=== PATIENT | female | born 1995 | race American Indian/Alaskan Native ===

== ENCOUNTER 2018-11-21 03:04 | Emergency (ER) | payer OTHER ==
[2018-11-21 03:18] VITALS: BP 129/84
[2018-11-21] MEDS ORDERED: TYLENOL ONE (03:28)
[2018-11-21] MEDS ORDERED: ZOFRAN ODT ONE (03:28)
[2018-11-21] MEDS ORDERED: TYLENOL PO ONE (03:29)
[2018-11-21] MEDS ORDERED: ZOFRAN ODT PO ONE (03:29)
[2018-11-21] MEDS ORDERED: BENTYL IM ONE (03:34)
[2018-11-21] MEDS ORDERED: NACL 0.9% 1000 ML 1,000 ML IV ONE (03:34)
[2018-11-21] MEDS ORDERED: ZOFRAN IV ONE (03:34)
--- NOTE | 2018-11-21 03:40 | Emergency Department Report ---
ED N/V/D HPI - General Chief complaint: Abdominal Pain Stated complaint: ABDOMINAL PAIN Source: patient Mode of arrival: Ambulatory Limitations: No Limitations - History of Present Illness Initial comments: Patient is a 23-year-old -[place] female presents for abdominal pain nausea vomiting diarrhea after eating chicken symptoms for the past 2 days patient states unable tolerate by mouth intake symptoms are relieved by nothing . LMP 11/05/2018 patient of fever no chills, abdominal pain described as cramping , there is no vaginal bleeding or vaginal discharge no back pain or shortness of breath patient does endorse epigastric pain as burning MD complaint: nausea, vomiting, diarrhea, abdominal pain Onset/Timin -: days(s) Description of Vomiting: food contents Description of Diarrhea: water Associated Abdominal Pain: Yes (cramping spasm) Location: LLQ, RLQ, epigastric Radiation: none Severity: moderate Pain Scale: 5 Quality: cramping Consistency: constant Improves with: none Worsens with: eating Context: possible food poisoning Associated Symptoms: nausea/vomiting - Related Data Previous Rx's Medication Instructions Recorded Last Taken Type Albuterol Sulfate [Ventolin HFA] 2 puff IH Q4H PRN #1 hfa.aer.ad 10/27/15 Unknown Rx Azithromycin [Zithromax Z-THIAGO] 0 mg PO DAILY #6 tab 10/27/15 Unknown Rx Benzonatate [Tessalon Perles] 100 mg PO Q8HR #21 capsule 10/27/15 Unknown Rx predniSONE [Deltasone] 20 mg PO QDAY #5 tab 10/27/15 Unknown Rx Dicyclomine [Bentyl] 10 mg PO QID PRN #12 capsule 11/21/18 Unknown Rx Ibuprofen 800 mg PO TID PRN #30 tablet 11/21/18 Unknown Rx Ondansetron [Zofran Odt] 4 mg PO Q8HR PRN #9 tab.rapdis 11/21/18 Unknown Rx Allergies Allergy/AdvReac Type Severity Reaction Status Date / Time No Known Allergies Allergy Unverified 05/30/14 10:50 ED Review of Systems ROS: Stated complaint: ABDOMINAL PAIN Other details as noted in HPI Constitutional: denies: chills, fever Eyes: denies: eye pain, eye discharge, vision change ENT: denies: ear pain, throat pain Respiratory: denies: cough, shortness of breath, wheezing Cardiovascular: denies: chest pain, palpitations Endocrine: no symptoms reported Gastrointestinal: abdominal pain, nausea, vomiting, diarrhea. denies: constipation, hematemesis, melena, hematochezia Genitourinary: denies: urgency, dysuria, frequency, hematuria, discharge, dyspareunia Musculoskeletal: denies: back pain, joint swelling, arthralgia Skin: denies: rash, lesions Neurological: denies: headache, weakness, paresthesias Psychiatric: denies: anxiety, depression Hematological/Lymphatic: denies: easy bleeding, easy bruising ED Past Medical Hx - Past Medical History Previous Medical History?: Yes Hx Asthma: Yes - Surgical History Past Surgical History?: Yes Additional Surgical History: tonsilectomy/adenoids - Social History Smoking Status: Current Every Day Smoker Substance Use Type: Marijuana - Medications Home Medications: Home Medications Medication Instructions Recorded Confirmed Last Taken Type Albuterol Sulfate [Ventolin HFA] 2 puff IH Q4H PRN #1 hfa.aer.ad 10/27/15 Unknown Rx Azithromycin [Zithromax Z-THIAGO] 0 mg PO DAILY #6 tab 10/27/15 Unknown Rx Benzonatate [Tessalon Perles] 100 mg PO Q8HR #21 capsule 10/27/15 Unknown Rx predniSONE [Deltasone] 20 mg PO QDAY #5 tab 10/27/15 Unknown Rx Dicyclomine [Bentyl] 10 mg PO QID PRN #12 capsule 11/21/18 Unknown Rx Ibuprofen 800 mg PO TID PRN #30 tablet 11/21/18 Unknown Rx Ondansetron [Zofran Odt] 4 mg PO Q8HR PRN #9 tab.rapdis 11/21/18 Unknown Rx ED Physical Exam - General Limitations: No Limitations General appearance: alert, in no apparent distress - Head Head exam: Present: atraumatic, normocephalic - Eye Eye exam: Present: normal appearance, PERRL, EOMI Pupils: Present: normal accommodation - ENT ENT exam: Present: normal orophraynx, mucous membranes moist, TM's normal bilaterally, normal external ear exam - Neck Neck exam: Present: normal inspection, full ROM. Absent: lymphadenopathy, thyromegaly - Respiratory Respiratory exam: Present: normal lung sounds bilaterally. Absent: respiratory distress, wheezes, stridor, chest wall tenderness - Cardiovascular Cardiovascular Exam: Present: regular rate, normal rhythm, normal heart sounds. Absent: systolic murmur, diastolic murmur, rubs, gallop - GI/Abdominal GI/Abdominal exam: Present: soft, normal bowel sounds. Absent: distended, tenderness, guarding, rebound, rigid, bruit, hernia - Rectal Rectal exam: Present: deferred - Extremities Exam Extremities exam: Present: normal inspection, full ROM. Absent: tenderness - Back Exam Back exam: Present: normal inspection, full ROM. Absent: tenderness, CVA te nderness (R), CVA tenderness (L) - Neurological Exam Neurological exam: Present: alert, oriented X3, CN II-XII intact, normal gait - Psychiatric Psychiatric exam: Present: normal affect, normal mood - Skin Skin exam: Present: warm, dry, intact, normal color. Absent: rash ED Course Vital Signs 11/21/18 03:12 Temperature 99.2 F Pulse Rate 92 H Respiratory 14 Rate Blood Pressure 129/84 O2 Sat by Pulse 97 Oximetry ED Medical Decision Making - Lab Data Result diagrams: 11/21/18 03:38 11/21/18 03:38 Labs 11/21/18 11/21/18 11/21/18 03:20 03:38 03:38 WBC 13.7 H RBC 4.83 Hgb 13.3 Hct 41.0 MCV 85 MCH 27 L MCHC 32 RDW 14.3 Plt Count 284 Lymph % (Auto) 8.9 L Mccone % (Auto) 6.3 Eos % (Auto) 0.3 Baso % (Auto) 0.4 Lymph # 1.2 Mccone # 0.9 H Eos # 0.0 Baso # 0.1 Seg Neutrophils % 84.1 H Seg Neutrophils # 11.5 H PT INR Sodium 140 Potassium 3.4 L Chloride 99.4 Carbon Dioxide 26 Anion Gap 18 BUN 10 Creatinine 0.8 Estimated GFR > 60 BUN/Creatinine Ratio 13 Glucose 137 H Calcium 9.4 Total Bilirubin 0.40 AST 19 ALT 12 Alkaline Phosphatase 93 Total Protein 7.5 Albumin 4.7 Albumin/Globulin Ratio 1.7 Lipase HCG, Qual Urine Color Yellow Urine Turbidity Clear Urine pH 6.0 Ur Specific Randolph 1.021 Urine Protein <15 mg/dl Urine Glucose (UA) Neg Urine Ketones 20 Urine Blood Neg Urine Nitrite Neg Urine Bilirubin Neg Urine Urobilinogen < 2.0 Ur Leukocyte Esterase Neg Urine WBC (Auto) 1.0 Urine RBC (Auto) 1.0 U Epithel Cells (Auto) 5.0 Urine Mucus Few 11/21/18 11/21/18 11/21/18 03:38 03:38 03:38 WBC RBC Hgb Hct MCV MCH MCHC RDW Plt Count Lymph % (Auto) Mccone % (Auto) Eos % (Auto) Baso % (Auto) Lymph # Mccone # Eos # Baso # Seg Neutrophils % Seg Neutrophils # PT 14.0 INR 1.04 Sodium Potassium Chloride Carbon Dioxide Anion Gap BUN Creatinine Estimated GFR BUN/Creatinine Ratio Glucose Calcium Total Bilirubin AST ALT Alkaline Phosphatase Total Protein Albumin Albumin/Globulin Ratio Lipase 16 HCG, Qual Negative Urine Color Urine Turbidity Urine pH Ur Specific Randolph Urine Protein Urine Glucose (UA) Urine Ketones Urine Blood Urine Nitrite Urine Bilirubin Urine Urobilinogen Ur Leukocyte Esterase Urine WBC (Auto) Urine RBC (Auto) U Epithel Cells (Auto) Urine Mucus - EKG Data EKG shows normal: sinus rhythm Rate: normal - EKG Data Interpretation: normal EKG (ekg interp by ed attending ) - Radiology Data Radiology results: report reviewed, image reviewed FINAL REPORT PROCEDURE: CT ABDOMEN PELVIS W CON TECHNIQUE: Computerized axial tomography of the abdomen and pelvis was performed after the IV injection of iodinated nonionic contrast. HISTORY: abd pain COMPARISON: No prior studies are available for comparison. FINDINGS: Visualized lower thorax: No significant abnormality. Liver: Normal size and attenuation. Spleen: Normal size and attenuation. Gallbladder and biliary system: Normal. Pancreas: Normal. Adrenals: Normal. Kidneys: Normal. GI tract: Normal. Lymph nodes and mesentery: Normal. Vasculature: Normal. Bladder: Normal. Reproductive organs: The uterus is normal. There is a 3 centimeter cyst on the left ovary. Moderate fluid in the lower pelvis.. Peritoneum: No free fluid. Musculoskeletal structures: No significant abnormality. Other: None. IMPRESSION: There is no evidence of intestinal or urinary tract obstruction. Appendix is n ormal. 3 centimeter left ovarian cyst. Moderate fluid in the lower pelvis is noted. - Medical Decision Making CT abdomen and pelvis results left ovarian cyst 3 cm small amount of free fluid pelvis no inflammatory process ,wbc: 13.7, patient states her pain is improved to 1/10 patient tolerated by mouth intake without nausea vomiting there is no fever no chills at this time, plan NSAIDs when necessary pain follow-up with ERP ANALYST in 2-3 days patient given referral to Dr. Dallas Lowry ERP ANALYST pt advises ready to go home , pt dc'd to home in stable condition at this time. Critical care attestation.: If time is entered above; I have spent that time in minutes in the direct care of this critically ill patient, excluding procedure time. ED Disposition Clinical Impression: Abdominal pain Qualifiers: Abdominal location: generalized Qualified Code(s): R10.84 - Generalized abdominal pain Nausea and vomiting Qualifiers: Vomiting type: unspecified Vomiting Intractability: non-intractable Qualified Code(s): R11.2 - Nausea with vomiting, unspecified Disposition: DC-01 TO HOME OR SELFCARE Is pt being admited?: No Does the pt Need Aspirin: No Condition: Stable Instructions: Abdominal Pain (ED), Acute Nausea and Vomiting (ED) Prescriptions: Dicyclomine [Bentyl] 10 mg PO QID PRN #12 capsule PRN Reason: abdominal spasm Ibuprofen 800 mg PO TID PRN #30 tablet PRN Reason: pain Ondansetron [Zofran Odt] 4 mg PO Q8HR PRN #9 tab.rapdis PRN Reason: Nausea And Vomiting Referrals: [facility] [Outside] - 3-5 Days Forms: Work/School Release Form(ED) Time of Disposition: 06:47
[2018-11-21 04:05] LABS: Bilirubin,Urine NEG (Negative); Blood,Urine NEG (Negative); Color,Urine Yellow (Yellow); Mucus,Urine FEW /HPF; Protein,Urine <15 mg/dL mg/dL (Negative); Urobilinogen,Urine < 2.0 mg/dL (<2.0)
[2018-11-21 04:08] LABS: Basophils # (Auto) 0.1 K/mm3 (0.0-0.1); Basophils % (Auto) 0.4 % (0.0-1.8); Eosinophils % (Auto) 0.3 % (0.0-4.3); Hemoglobin 13.3 gm/dl (10.1-14.3); Lymphocytes # (Auto) 1.2 K/mm3 (1.2-5.4); Lymphocytes % (Auto) 8.9 % (13.4-35.0); Monocytes # (Auto) 0.9 K/mm3 (0.0-0.8); Monocytes % (Auto) 6.3 % (0.0-7.3)
[2018-11-21 04:17] LABS: INR 1.04 (0.87-1.13)
[2018-11-21 04:26] LABS: Alanine Aminotransferase 12 units/L (7-56); Albumin 4.7 g/dL (3.9-5); BUN/Creatinine Ratio 13; Blood Urea Nitrogen 10 mg/dL (7-17); Calcium 9.4 mg/dL (8.4-10.2); Hemolysis Index 2
[2018-11-21 04:40] LABS: Mean Corpuscular HGB Conc 32 % (30-34); Mean Corpuscular Volume 85 fl (79-97); Platelet Count 284 K/mm3 (140-440); Red Blood Count 4.83 M/mm3 (3.65-5.03); Red Cell Distribution Width 14.3 % (13.2-15.2)
--- NOTE | 2018-11-21 05:33 | Cat Scan Report ---
FINAL REPORT PROCEDURE: CT ABDOMEN PELVIS W CON TECHNIQUE: Computerized axial tomography of the abdomen and pelvis was performed after the IV inject ion of iodinated nonionic contrast. HISTORY: abd pain COMPARISON: No prior studies are available for comparison. FINDINGS: Visualized lower thorax: No significant abnormality. Liver: Normal size and attenuation. Spleen: Normal size and attenuation. Gallbladder and biliary system: Normal. Pancreas: Normal. Adrenals: Normal. Kidneys: Normal. GI tract: Normal. Lymph nodes and mesentery: Normal. Vasculature: Normal. Bladder: Normal. Reproductive organs: The uterus is normal. There is a 3 centimeter cyst on the left ovary. Moderate f luid in the lower pelvis.. Peritoneum: No free fluid. Musculoskeletal structures: No significant abnormality. Other: None. IMPRESSION: There is no evidence of intestinal or urinary tract obstruction. Appendix is normal. 3 centimeter left ovarian cyst. Moderate fluid in the lower pelvis is noted.
== END 2018-11-21 07:02 | disposition home or self-care (01) ==
LOC: ED 03:04
DX: R10.84 Generalized abdominal pain (principal); R11.2 Nausea with vomiting, unspecified; J45.909 Unspecified asthma, uncomplicated; F17.200 Nicotine dependence, unspecified, uncomplicated; F12.10 Cannabis abuse, uncomplicated
CPT/HCPCS: 36415; 74177; 80053; 81001; 83690; 84703; 85025; 85610; 93005; 93010; 96361; 96372; 96374; 99284; J0500; J2405; J7030; Q9967; Q0162

== ENCOUNTER 2018-12-06 19:13 | Emergency (ER) | payer OTHER ==
[2018-12-06 20:19] LABS: Bilirubin,Urine NEG (Negative); Blood,Urine LG (Negative); Color,Urine Yellow (Yellow); Mucus,Urine FEW /HPF; Urobilinogen,Urine < 2.0 mg/dL (<2.0)
[2018-12-06 20:23] LABS: Amphetamine Screen,Urine PRESUMPTIVE NEGATIVE; Benzodiazepines Screen,Urine PRESUMPTIVE NEGATIVE; Cocaine Screen,Urine PRESUMPTIVE NEGATIVE; Methadone Screen,Urine PRESUMPTIVE NEGATIVE; Opiate Screen,Urine PRESUMPTIVE NEGATIVE
[2018-12-06 20:28] LABS: Basophils # (Auto) 0.1 K/mm3 (0.0-0.1); Basophils % (Auto) 0.7 % (0.0-1.8); Eosinophils % (Auto) 0.2 % (0.0-4.3); Hematocrit 43.6 % (30.3-42.9); Hemoglobin 14.3 gm/dl (10.1-14.3); Lymphocytes # (Auto) 1.7 K/mm3 (1.2-5.4); Lymphocytes % (Auto) 16.7 % (13.4-35.0); Mean Corpuscular HGB Conc 33 % (30-34); Mean Corpuscular Volume 83 fl (79-97); Monocytes # (Auto) 0.7 K/mm3 (0.0-0.8); Platelet Count 318 K/mm3 (140-440); Red Blood Count 5.24 M/mm3 (3.65-5.03); Red Cell Distribution Width 13.4 % (13.2-15.2)
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
[2018-12-06 20:38] LABS: Cannabinoid Screen,Urine PRESUMPTIVE POSITIVE
[2018-12-06 20:45] LABS: BUN/Creatinine Ratio 12; Blood Urea Nitrogen 11 mg/dL (7-17); Calcium 10.1 mg/dL (8.4-10.2); Hemolysis Index 6
[2018-12-06 21:15] VITALS: BP 144/95
== END 2018-12-06 21:11 | disposition home or self-care (01) ==
LOC: ED 19:13
DX: Z63.79 Other stressful life events affecting family and household (principal); F32.9 Major depressive disorder, single episode, unspecified; J45.909 Unspecified asthma, uncomplicated; Z90.89 Acquired absence of other organs
CPT/HCPCS: 36415; 80048; 80307; 81001; 84703; 85025; 99284; G0480; 80320

== ENCOUNTER 2021-12-18 16:35 | Emergency (ER) | payer OTHER ==
--- NOTE | 2021-12-18 17:22 | XRay Report ---
CHEST 2 VIEWS INDICATION / CLINICAL INFORMATION: chest pain. COMPARISON: None available. FINDINGS: SUPPORT DEVICES: None. HEART / MEDIASTINUM: No significant abnormality. LUNGS / PLEURA: No significant pulmonary or pleural abnormality. No pneumothorax. ADDITIONAL FINDINGS: No significant additional findings. IMPRESSION: 1. No acute findings. Signer Name: Julien Casey DO Signed: 12/18/2021 5:17 PM Workstation Name: [id number]
--- NOTE | 2021-12-18 17:36 | Emergency Department Report ---
HPI - General Chief Complaint: Chest Pain Time Seen by Provider: 12/18/21 17:22 - HPI HPI: Reassessment 2 The patient is a 26-year-old female present with a chief complaint of chest pain. The patient states she has had intermittent substernal left-sided chest pain since August 2021. Patient states she has not yet seen a physician about this pain. Patient describes pain as sharp in nature and sometimes associated with nausea. Patient denies vomiting, diaphoresis or shortness of breath with her pain. Patient denies history of cough. Patient denies any recent flights or long car trips. Patient states for the last week she has had intermittent palpitations. ED Past Medical Hx - Past Medical History Previous Medical History?: Yes Hx Asthma: Yes Additional medical history: chest pain - Surgical History Past Surgical History?: Yes Additional Surgical History: tonsilectomy/adenoids - Family History Family history: no significant - Social History Smoking Status: Never Smoker Substance Use Type: None (Denies illicit drug use) - Medications Home Medications: Home Medications Medication Instructions Recorded Confirmed Last Taken Type Albuterol Sulfate [Ventolin HFA] 2 puff IH Q4H PRN #1 hfa.aer.ad 10/27/15 Unknown Rx Azithromycin [Zithromax Z-THIAGO] 0 mg PO DAILY #6 tab 10/27/15 Unknown Rx Benzonatate [Tessalon Perles] 100 mg PO Q8HR #21 capsule 10/27/15 Unknown Rx predniSONE [Deltasone] 20 mg PO QDAY #5 tab 10/27/15 Unknown Rx Dicyclomine [Bentyl] 10 mg PO QID PRN #12 capsule 11/21/18 Unknown Rx Ibuprofen 800 mg PO TID PRN #30 tablet 11/21/18 Unknown Rx Ondansetron [Zofran Odt] 4 mg PO Q8HR PRN #9 tab.rapdis 11/21/18 Unknown Rx Cyclobenzaprine [Flexeril] 10 mg PO TID PRN #10 12/18/21 Unknown Rx Ibuprofen [Motrin 800 MG tab] 800 mg PO Q8HR PRN #20 tablet 12/18/21 Unknown Rx ED Review of Systems ROS: Stated complaint: CHEST PAIN/FACIAL NUMBNESS Other details as noted in HPI Constitutional: denies: diaphoresis Eyes: denies: eye pain ENT: denies: throat pain Respiratory: denies: cough, shortness of breath Cardiovascular: chest pain, palpitations Endocrine: no symptoms reported Gastrointestinal: nausea. denies: vomiting Genitourinary: denies: dysuria Musculoskeletal: denies: back pain Neurological: denies: headache Physical Exam - Physical Exam Physical Exam: GENERAL: The patient is well-developed well-nourished female sitting in chair not appearing to be in acute distress. [] HEENT: Normocephalic. Atraumatic. Extraocular motions are intact. Patient has moist mucous membranes. NECK: Supple. Trachea midline CHEST/LUNGS: Clear to auscultation. There is no respiratory distress noted. HEART/CARDIOVASCULAR: Regular. There is no tachycardia. There is no gallop rub or murmur. ABDOMEN: Abdomen is soft, nontender. Patient has normal bowel sounds. There is no abdominal distention. SKIN: There is no rash. There is no edema. There is no diaphoresis. NEURO: The patient is awake, alert, and oriented. The patient is cooperative. The patient has no focal neurologic deficits. The patient has normal speech and gait. GCS 15 MUSCULOSKELETAL: There is no evidence of acute injury. ED Medical Decision Making - Lab Data Result diagrams: 12/18/21 17:54 12/18/21 17:54 Laboratory Tests 12/18/21 12/18/21 12/18/21 17:54 17:54 17:54 WBC 7.4 RBC 4.99 Hgb 14.1 Hct 44.5 H MCV 89 MCH 28 MCHC 32 RDW 13.0 L Plt Count 247 Lymph % (Auto) 32.1 Dickenson % (Auto) 7.4 H Eos % (Auto) 0.6 Baso % (Auto) 0.6 Lymph # (Auto) 2.4 Dickenson # (Auto) 0.5 Eos # (Auto) 0.0 Baso # (Auto) 0.0 Seg Neutrophils % 59.3 Seg Neutrophils # 4.4 D-Dimer < 135.00 Sodium 140 Potassium 3.8 Chloride 102.8 Carbon Dioxide 25 Anion Gap 16 BUN 12 Creatinine 0.9 Estimated GFR > 60 BUN/Creatinine Ratio 13 Glucose 82 Calcium 8.8 Magnesium 2.00 Total Creatine Kinase 96 CK-MB (CK-2) < 1.0 CK-MB (CK-2) Rel Index 1.0 Troponin T < 0.010 TSH Free T4 HCG, Qual 12/18/21 12/18/21 17:54 17:54 WBC RBC Hgb Hct MCV MCH MCHC RDW Plt Count Lymph % (Auto) Dickenson % (Auto) Eos % (Auto) Baso % (Auto) Lymph # (Auto) Dickenson # (Auto) Eos # (Auto) Baso # (Auto) Seg Neutrophils % Seg Neutrophils # D-Dimer Sodium Potassium Chloride Carbon Dioxide Anion Gap BUN Creatinine Estimated GFR BUN/Creatinine Ratio Glucose Calcium Magnesium Total Creatine Kinase CK-MB (CK-2) CK-MB (CK-2) Rel Index Troponin T TSH 0.709 Free T4 1.06 HCG, Qual Negative - EKG Data -: EKG Interpreted by Me EKG shows normal: sinus rhythm Rate: normal - EKG Data When compared to previous EKG there are: no significant change Interpretation: unchanged when compared t (11/21/2018) - Radiology Data Radiology results: report reviewed (Chest x-ray), image reviewed (Chest x-ray) interpreted by me: Chest x-ray-no definite focal infiltrates, no pneumothorax [address] [address] XRay Report Signed Patient: PAXTON FREEMAN MR #: [id number] : 1995 Acct:[id number] Age/Sex: 26 / F ADM Date: 12/18/21 Loc: ED Attending Dr: Ordering Physician: AMAURI ROBLES MD Date of Service: 12/18/21 Procedure(s): XR chest routine 2V Accession Number(s): [id number] cc: AMAURI ROBLES MD Fluoro Time In Minutes: CHEST 2 VIEWS INDICATION / CLINICAL INFORMATION: chest pain. COMPARISON: None available. FINDINGS: SUPPORT DEVICES: None. HEART / MEDIASTINUM: No significant abnormality. LUNGS / PLEURA: No significant pulmonary or pleural abnormality. No pneumothorax. ADDITIONAL FINDINGS: No significant additional findings. IMPRESSION: 1. No acute findings. Signer Name: Julien Maxwell DO Signed: 12/18/2021 5:17 PM Workstation Name: [id number] Transcribed By: SHER Dictated By: JULIEN MAXWELL DO Electronically Authenticated By: JULIEN MAXWELL DO Signed Date/Time: 12/18/211716 DD/ 16 TD/TT: Print Cancel - Differential Diagnosis Costochondritis, anxiety, PE, dysrhythmia, ACS Critical care attestation.: If time is entered above; I have spent that time in minutes in the direct care of this critically ill patient, excluding procedure time. ED Disposition Clinical Impression: Atypical chest pain Disposition: HOME / SELF CARE / HOMELESS Is pt being admited?: No Does the pt Need Aspirin: No Condition: Stable Instructions: Nonspecific Chest Pain, Adult Additional Instructions: Return to the emergency department should you develop worsening symptoms, inability to tolerate food or liquids, high fever or any other concerns Prescriptions: Cyclobenzaprine [Flexeril] 10 mg PO TID PRN #10 PRN Reason: Muscle Spasm Ibuprofen [Motrin 800 MG tab] 800 mg PO Q8HR PRN #20 tablet PRN Reason: Pain, Moderate (4-6) Referrals: [facility] [Provider Group] - 3-5 Days FORREST PENNY MD [Staff Physician] - 3-5 Days (Dr. Penny is a primary physician. Please follow-up with him for further evaluation) Time of Disposition: 19:34
[2021-12-18 19:17] LABS: Basophils % (Auto) 0.6 % (0.0-1.8); Eosinophils % (Auto) 0.6 % (0.0-4.3); Hematocrit 44.5 % (30.3-42.9); Hemoglobin 14.1 gm/dl (10.1-14.3); Lymphocytes # (Auto) 2.4 K/mm3 (1.2-5.4); Lymphocytes % (Auto) 32.1 % (13.4-35.0); Mean Corpuscular HGB Conc 32 % (30-34); Mean Corpuscular Volume 89 fl (79-97); Monocytes # (Auto) 0.5 K/mm3 (0.0-0.8); Monocytes % (Auto) 7.4 % (0.0-7.3); Platelet Count 247 K/mm3 (140-440); Red Blood Count 4.99 M/mm3 (3.65-5.03)
[2021-12-18 19:21] LABS: BUN/Creatinine Ratio 13; Blood Urea Nitrogen 12 mg/dL (7-17); Calcium 8.8 mg/dL (8.4-10.2); Hemolysis Index 33
[2021-12-18 19:27] LABS: Free T4 (Free Thyroxine) 1.06 ng/dL (0.76-1.46)
[2021-12-18 19:28] LABS: Creatine Kinase MB < 1.0 ng/mL (0.0-4.0)
[2021-12-18 19:46] VITALS: BP 112/68
--- NOTE | 2021-12-19 12:32 | Electrocardiograph Report ---
[facility] Test Date: 2021-12-18 Test Time: 16:48:23 Pat Name: PAXTON FREEMAN Department: Room: Gender: F Sausage Cutter: Nemo HANSEN RN : 1995 Requested By: AMAURI ROBLES Order Number: [id number] Reading MD: Michael Marquez Measurements Intervals [place] Rate: 79 P: 37 MI: 133 QRS: 74 QRSD: 77 T: 56 QT: 382 QTc: 439 Interpretive Statements Sinus rhythm No previous ECG available for comparison Electronically Signed On 12-19-2021 12:32:20 EST by Michael Marquez
== END 2021-12-18 19:46 | disposition home or self-care (01) ==
LOC: ED 16:35
DX: R07.89 Other chest pain (principal); J45.909 Unspecified asthma, uncomplicated
CPT/HCPCS: 36415; 71046; 80048; 82550; 82553; 83735; 84439; 84443; 84484; 84703; 85025; 85379; 93005; 93010; 99284